=== PATIENT | female | born 1980 | race Hispanic/Latino ===

== ENCOUNTER 2017-07-07 17:16 | Emergency (ER) | payer BC ==
[~2017-07-07] VITALS: Ht 157.5 cm; Wt 64.9 kg
[~2017-07-07 17:16] MED LIST: BENADRYL25 M1 PO
--- OUTSIDE RECORDS SUMMARY | 2017-07-07 17:19 | XMS REPORT | Clinical Summary ---
Author Author [facility] Address Unknown Phone Unavailable Care Team Providers Care Drug Abuse Counselor Name Role Phone Asked, Pcp PCP Unavailable Allergies No Known Allergies Current Medications Prescription Sig. Disp. Refills Start End Date Status Date ALPRAZolam (XANAX) 0.25 Take 0.25 mg by mouth Active MG tablet nightly as needed for anxiety. norethindrone-e.estradiol Take 1 tablet by mouth 28 tablet 12 03/20/19 -iron 1 mg-10 mcg (24)/10 daily. 17 18 mcg (2) tablet Active Problems No known active problems Family History Medical History Relation Name Comments Breast cancer Maternal Aunt Cancer Maternal Aunt STOMACH Cancer Maternal COLON Uncle Hypertension Mother Relation Name Status Comments Maternal Aunt Maternal Aunt Maternal Uncle Mother Social History Tobacco Use Types Packs/Day Years Used Date Never Smoker Alcohol Use Drinks/Week oz/Week Comments Yes MODERATE Sex Assigned at Date Recorded Not on file Last Filed Vital Signs Not on file Plan of Treatment Health Maintenance Due Date Last Done Comments PAP SMEAR 08/28/2003 INFLUENZA VACCINE 09/26/2017 Results Not on fileafter 07/06/2016 Insurance Payer Benefit Subscriber ID Type Phone Address Plan / Group BCBS BCBS xxxxxxxxxxxx PPO CHOICE PPO/MARLEE [employer]LEJO PPO
--- OUTSIDE RECORDS SUMMARY | 2017-07-07 17:19 | XMS REPORT | Summary of Care ---
Author Author LILLIE ANDREWS M.D. Organization Unknown Address Unknown Phone Unavailable Care Team Providers Care Staking Technician Name Role Phone LILLIE ANDREWS M.D. Unavailable Unavailable PATI WYLIE MD Unavailable Unavailable Unavailable Unavailable Functional Status Name Dates Details Functional status health issues are not documented Status: Name Dates Details Cognitive status health issues are not documented Status: Problems Name Dates Details Essential tremor (333.1, G25.0) Status: Active Stenosis, cervical spine (723.0, M48.02) Status: Active Medications Name Dates Details Benadryl Allergy 25 MG Oral Capsule 1 tab prn R.N. Active ALPRAZolam 0.5 MG Oral Tablet PRN * Refills: 0 R.N. Active Ambien 5 MG Oral Tablet TAKE ONE TABLET BY MOUTH EVERY NIGHT AT BEDTIME prn * Refills: 0 R.N. Active Propranolol HCl - 10 MG Oral Tablet TAKE 1 TABLET TWICE DAILY * Quantity: 60 Refills: 3 LILLIE ANDREWS M.D. * Start : 25-Jan-2017 Active Allergies and Adverse Reactions Name Dates Details No Known Allergies (Allergy) Status: Active Past Medical History Name Dates Details History of Anxiety (300.00, F41.9) Status: Resolved History of difficulty sleeping (V49.89, Z72.821) Status: Resolved History of multiple allergies (V49.89, Z91.89) Status: Resolved Procedures Procedure Dates Details History of wisdom tooth extraction Completed Immunization Name Dates Details Immunizations not documented Family History Name Dates Details No pertinent family history Comments: Other Status: Active Name Dates Details No pertinent family history Status: Active Name Dates Details No pertinent family history Status: Active Name Dates Details No pertinent family history Status: Active Social History Name Dates Details Unknown if ever smoked Vital Signs Date Test Result Details No Known Vitals to report Results Date Description Value Details Results not documented Plan of Care Name Dates Details Planned Observations Planned Goals not documented Instructions Name Dates Details Instructions not documented Encounters Appointment; LLILIE ANDREWS M.D. Encounter Diagnosis: Problem not documented On: 11-Jan-2017 9:00
[2017-07-07 18:08] LABS: BASOPHILS # (AUTO) 0.1 (0.0-0.1); BASOPHILS % 0.8 % (0.0-1.0); EOSINOPHILS # (AUTO) 0.1 (0.0-0.4); EOSINOPHILS % 0.8 % (0.0-6.0); HEMATOCRIT 38.8 % (34.2-44.1); HEMOGLOBIN 13.7 g/dL (12.0-16.0); LYMPHOCYTES # (AUTO) 2.2 (1.0-3.2); LYMPHOCYTES % 25.4 % (18.0-39.1); MEAN CORPUSCULAR HEMOGLOBIN 31.3 pg (28-32); MEAN CORPUSCULAR HGB CONC 35.3 g/dL (31-35); MEAN CORPUSCULAR VOLUME 88.6 fL (81-99); MONOCYTES # (AUTO) 0.7 (0.2-0.8); MONOCYTES % 7.6 % (4.4-11.3); NEUTROPHILS # (AUTO) 5.6 (2.1-6.9); NEUTROPHILS % 65.2 % (38.7-80.0); PLATELET COUNT 305 x10e3/uL (140-360); RED BLOOD COUNT 4.38 x10e6/uL (3.6-5.1); RED CELL DISTRIBUTION WIDTH 12.1 % (11.7-14.4)
--- NOTE | 2017-07-07 18:56 | Diagnostic Imaging Report ---
EXAMINATION: CHEST 2 VIEWS 07/07/2017 5:41 PM COMPARISON: None INDICATION: Chest pain DISCUSSION: LINES: None. LUNGS: The lungs are well inflated and clear. No pneumonia or pulmonary edema. PLEURA: No pleural effusion or pneumothorax. HEART AND MEDIASTINUM: The cardiomediastinal silhouette is unremarkable. BONES AND SOFT TISSUES: No acute osseous lesion. The soft tissues are normal. IMPRESSION: No acute cardiopulmonary disease. Jerome Phillips MD Signed by: Dr. Jerome Phillips M.D. on 07/07/2017 6:53 PM
[2017-07-07 19:01] LABS: ALANINE AMINOTRANSFERASE 16 IU/L (0-55); ALBUMIN 3.6 g/dL (3.5-5.0); ALBUMIN/GLOBULIN RATIO 0.9 (0.8-2.0); ALKALINE PHOSPHATASE 55 IU/L (40-150); ANION GAP 11.5 mmol/L (8-16); BLOOD UREA NITROGEN 11 mg/dL (7-26); BUN/CREATININE RATIO 16 (6-25); CALCIUM 9.2 mg/dL (8.4-10.2); CARBON DIOXIDE 23 mmol/L (22-29); CHLORIDE 103 mmol/L (98-107); CREATINE KINASE 39 IU/L (29-168); EST GLOMERULAR FILTRATION RATE > 60 ML/MIN (60-); GLUCOSE 139 mg/dL (74-118); POTASSIUM 3.5 mmol/L (3.5-5.1); SODIUM 134 mmol/L (136-145)
[2017-07-07 19:33] VITALS: BP 123/83
== END 2017-07-07 19:43 | disposition home or self-care (01) ==
LOC: ER 17:16
DX: R07.89 Other chest pain (principal); E05.90 Thyrotoxicosis, unspecified without thyrotoxic crisis or storm
CPT/HCPCS: 36415; 71046; 80053; 82550; 82553; 84484; 85025; 93005; 99284

== ENCOUNTER → 2017-07-12 | Outpatient (CLI) | payer BC ==
--- NOTE | 2017-07-12 14:41 | Diagnostic Imaging Report ---
PROCEDURE: US THYROID COMPARISON: None. INDICATIONS:GOITER TECHNIQUE: Transverse and longitudinal beasley-scale sonographic images of the thyroid were obtained and supplemented with color doppler. FINDINGS: Right thyroid lobe: 5.3 x 1.2 x 2.0 cm, normal in size. There is a 0.5 x 0.3 x 0.4 cm colloid cyst in the medial right thyroid lobe. Left thyroid lobe: 4.8 x 1.2 x 1.9 cm, normal in size Isthmus: 0.3 cm CONCLUSION: The size of the thyroid gland is within normal limits. There are no suspicious thyroid nodules. Dictated by: Jerome Phillips M.D. on 07/12/2017 at 14:43 Electronically approved by: Jerome Phillips M.D. on 07/12/2017 at 14:43
== END ==
LOC: US 13:39
PROVIDERS: ATTEND Family Medicine
DX: E04.9 Nontoxic goiter, unspecified (principal)
CPT/HCPCS: 76536

== ENCOUNTER → 2020-05-17 | Day surgery (SDC) | payer BC ==
[~2020-05-17] MED LIST changes: +FENTANYL CITRATE/PF 100MCG/2 ML INJ ONE; +LIDOCAINE HCL 2% LOCAL INJ 5 ML SDV VIAL INJ ONE; +METOCLOPRAMIDE HCL 10 MG/2ML VIAL ONE; +MIDAZOLAM HCL 2 MG/2 ML VIAL ONE; +NEXIUM40 MG PO; +PANTOPRAZOLE 40 MG 10ML VIAL ONE; +PROPOFOL IV EMULSION 10 MG/ML 20 ML VIAL ONE
[2020-05-17 13:00] VITALS: BP 106/65
== END | disposition home or self-care (01) ==
LOC: OR 08:04
PROVIDERS: ATTEND Internal Medicine Gastroenterology
DX: K21.9 Gastro-esophageal reflux disease without esophagitis (principal); K31.7 Polyp of stomach and duodenum; K29.70 Gastritis, unspecified, without bleeding; K20.90 Esophagitis, unspecified without bleeding; E03.9 Hypothyroidism, unspecified; G47.00 Insomnia, unspecified; F41.9 Anxiety disorder, unspecified; Z01.812 Encounter for preprocedural laboratory examination; Z20.822 Contact with and (suspected) exposure to COVID-19; Z68.28 Body mass index [BMI] 28.0-28.9, adult
CPT/HCPCS: 43239; 81025; C9113; J2250; J3010; U0002; J2001; J2765

== ENCOUNTER → 2020-05-21 | Outpatient (CLI) | payer BC ==
[~2020-05-21] MED LIST changes: -FENTANYL CITRATE/PF 100MCG/2 ML INJ ONE; -LIDOCAINE HCL 2% LOCAL INJ 5 ML SDV VIAL INJ ONE; -METOCLOPRAMIDE HCL 10 MG/2ML VIAL ONE; -MIDAZOLAM HCL 2 MG/2 ML VIAL ONE; -PANTOPRAZOLE 40 MG 10ML VIAL ONE; -PROPOFOL IV EMULSION 10 MG/ML 20 ML VIAL ONE
== END ==
LOC: US 15:25
PROVIDERS: ATTEND Internal Medicine Gastroenterology
DX: R10.10 Upper abdominal pain, unspecified (principal)
CPT/HCPCS: 76700